=== PATIENT | male | born 1970 | race Caucasian/White ===

== ENCOUNTER 2016-10-08 13:30 | Inpatient (IN) | payer OTHER ==
[2016-10-08] VITALS (9 sets, daily range): BP systolic 130–155; BP diastolic 75–95; PULSE 79–101; RESP 12–20; TEMP 97.1–98.9; O2SAT 96–100
[2016-10-08] MEDS ORDERED: ceFAZolin 2 GM PREMIX 50 ML ONE (13:34)
[2016-10-08] MEDS ORDERED: IOHEXOL 350 MG/ML 10 ML VIAL (for RAD DIAG) IV ONE (13:45)
[2016-10-08 13:51] LABS: AUTOMATED NEUTROPHIL # 2.7 TH/MM3 (1.8-7.7); BASOPHIL # 0.1 TH/MM3 (0-0.2); BASOPHIL % 1.1 % (0.0-2.0); EOSINOPHIL # 0.1 TH/MM3 (0-0.4); EOSINOPHIL % 1.9 % (0.0-4.0); HEMATOCRIT 39.1 % (39.0-51.0); HEMO FLAGS DIFF FINAL; LYMPH % 40.1 % (9.0-44.0); LYMPHOCYTE # 2.2 TH/MM3 (1.0-4.8); MEAN CELL VOLUME 94.3 FL (80.0-100.0); MONO % 8.4 % (0.0-8.0); NEUT % 48.5 % (16.0-70.0); PLATELET COUNT 172 TH/MM3 (150-450); RED BLOOD COUNT 4.15 MIL/MM3 (4.50-5.90); RED CELL DISTRIBUTION WIDTH 13.1 % (11.6-17.2); WHITE BLOOD COUNT 5.6 TH/MM3 (4.0-11.0)
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
[2016-10-08 14:00] LABS: I-STAT POTASSIUM 4.2 MMOL/L (3.5-4.9)
[2016-10-08] MEDS: SODIUM CHLOR 0.9% 1000 ML INJ 1,000 ML IV SCH ×2 (14:02→23:19)
[2016-10-08 14:03] LABS: APTT (PATIENT) 24.9 SEC (24.3-30.1); INTERNATIONAL NORMALIZED RATIO 0.9 RATIO; PROTHROMBIN TIME - PATIENT 10.1 SEC (9.8-11.6)
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
[2016-10-08] MEDS ORDERED: Post-op Orders (for Pharmacy) MISC XX ONE (14:15)
[2016-10-08] MEDS ORDERED: ONDANSETRON HCL 4 MG/2 ML VIAL IV PRN (14:15)
[2016-10-08] MEDS ORDERED: NALOXONE HCL 0.4 MG/ML AMP IV PRN (14:15)
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
[2016-10-08] MEDS ORDERED: PROPARACAINE HCL 0.5% OPHT SOLN 15 ML BTL EACH EYE ONE (14:45)
[2016-10-08 15:06] LABS: BARBITURATES, URINE NEG (NEG); COCAINE, URINE NEG (NEG)
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
[2016-10-08] MEDS: ACETAMINOPHEN/HYDROcodone 325 MG/5 MG TAB PO PRN ×3 (15:15→23:19)
[2016-10-08] MEDS ORDERED: PROPARACAINE HCL 0.5% OPHT SOLN 15 ML BTL RIGHT EYE ONE (15:15)
[2016-10-08 15:17] LABS: AMPHETAMINE, URINE NEG (NEG)
[2016-10-08] MEDS: PANTOPRAZOLE SODIUM 40 MG VIAL IV SCH (16:13)
[2016-10-08] MEDS: MULTIVITAMIN INJ 10 ML, THIAMINE INJ 100 MG, FOLIC ACID INJ 1 MG in DEXT 5%-NACL 0.9% 5... IV SCH (18:00)
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
[2016-10-08] MEDS: MORPHINE SULFATE 8 MG/ML INJ IV PUSH PRN (21:40)
[2016-10-08] MEDS: BACITRACIN TOP OINT 15 GM TUBE TOPICAL SCH (21:41)
[2016-10-08] MEDS: DOCUSATE SODIUM 50 MG/SENNA 8.6 MG TAB PO SCH (21:41)
[2016-10-08] MEDS: SODIUM CHLORIDE 0.9% FLUSH 10 ML FLUSH IV FLUSH SCH (21:41)
[2016-10-09] VITALS: BP 136/85; PULSE 75; RESP 25; TEMP 98; O2SAT 96
[2016-10-09] MEDS: MORPHINE SULFATE 8 MG/ML INJ IV PUSH PRN ×6 (03:21→21:26)
[2016-10-09] MEDS: ACETAMINOPHEN/HYDROcodone 325 MG/5 MG TAB PO PRN ×4 (03:39→23:37)
[2016-10-09 04:00] VITALS: BP 138/86; PULSE 79; RESP 20; TEMP 97.5; O2SAT 100
[2016-10-09 08:00] VITALS: BP 153/83; PULSE 85; RESP 20; TEMP 98; O2SAT 96
[2016-10-09 08:52] LABS: AUTOMATED NEUTROPHIL # 3.5 TH/MM3 (1.8-7.7); BASOPHIL % 0.4 % (0.0-2.0); EOSINOPHIL # 0.1 TH/MM3 (0-0.4); EOSINOPHIL % 1.1 % (0.0-4.0); HEMATOCRIT 34.9 % (39.0-51.0); HEMO FLAGS DIFF FINAL; LYMPH % 28.2 % (9.0-44.0); LYMPHOCYTE # 1.6 TH/MM3 (1.0-4.8); MEAN CELL VOLUME 95.4 FL (80.0-100.0); MEAN CORPUSCULAR HEMOGLOBIN 32.3 PG (27.0-34.0); MEAN CORPUSCULAR HGB CONC 33.8 % (32.0-36.0); MONO % 10.1 % (0.0-8.0); NEUT % 60.2 % (16.0-70.0); PLATELET COUNT 144 TH/MM3 (150-450); RED BLOOD COUNT 3.66 MIL/MM3 (4.50-5.90); RED CELL DISTRIBUTION WIDTH 13.1 % (11.6-17.2); WHITE BLOOD COUNT 5.8 TH/MM3 (4.0-11.0)
[2016-10-09] MEDS: DOCUSATE SODIUM 50 MG/SENNA 8.6 MG TAB PO SCH ×2 (08:55→21:00)
[2016-10-09] MEDS: SODIUM CHLORIDE 0.9% FLUSH 10 ML FLUSH IV FLUSH SCH ×2 (09:00→21:00)
[2016-10-09] MEDS: BACITRACIN TOP OINT 15 GM TUBE TOPICAL SCH ×2 (09:00→21:00)
[2016-10-09 09:17] LABS: BICARBONATE 26.7 MEQ/L (21.0-32.0); POTASSIUM 3.8 MEQ/L (3.5-5.1)
[2016-10-09 12:00] VITALS: BP 120/87; PULSE 81; RESP 20; TEMP 98.4; O2SAT 98
[2016-10-09] MEDS ORDERED: PERC5TAB12 PO (12:20)
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
[2016-10-09 16:00] VITALS: BP 115/75; PULSE 80; RESP 20; TEMP 98.4; O2SAT 97
[2016-10-09] MEDS: SODIUM CHLOR 0.9% 1000 ML INJ 1,000 ML IV SCH (16:22)
[2016-10-09] MEDS: MULTIVITAMIN INJ 10 ML, THIAMINE INJ 100 MG, FOLIC ACID INJ 1 MG in DEXT 5%-NACL 0.9% 5... IV SCH (18:33)
[2016-10-09] MEDS: PANTOPRAZOLE SODIUM 40 MG VIAL IV SCH (18:33)
[2016-10-09 20:00] VITALS: BP 138/74; PULSE 73; RESP 20; TEMP 98.5; O2SAT 98
[2016-10-10] VITALS: BP 124/75; PULSE 79; RESP 18; TEMP 98; O2SAT 96
[2016-10-10] MEDS: MORPHINE SULFATE 8 MG/ML INJ IV PUSH PRN ×3 (02:22→10:03)
[2016-10-10] MEDS: SODIUM CHLORIDE 0.9% FLUSH 10 ML FLUSH IV FLUSH PRN ×2 (02:22→04:59)
[2016-10-10] MEDS: SODIUM CHLOR 0.9% 1000 ML INJ 1,000 ML IV SCH (02:23)
[2016-10-10 04:00] VITALS: BP 121/82; PULSE 68; RESP 18; TEMP 97.6; O2SAT 98
[2016-10-10] MEDS: ACETAMINOPHEN/HYDROcodone 325 MG/5 MG TAB PO PRN (07:19)
[2016-10-10] MEDS ORDERED: WALKER WHEELS/F1 MIS (07:59)
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
[2016-10-10] MEDS: DOCUSATE SODIUM 50 MG/SENNA 8.6 MG TAB PO SCH (08:45)
[2016-10-10] MEDS: SODIUM CHLORIDE 0.9% FLUSH 10 ML FLUSH IV FLUSH SCH (08:49)
[2016-10-10] MEDS: BACITRACIN TOP OINT 15 GM TUBE TOPICAL SCH (10:07)
== END 2016-10-10 10:54 | disposition home or self-care (01) | DRG 90 ==
LOC: NEPI 13:30 → EDBD 15:13 → NEDA 15:13 → N05B 18:20
PROVIDERS: ADMIT Surgery; ATTEND Surgery
DX: S06.0X9A Concussion with loss of consciousness of unspecified duration, initial encounter (principal); F19.129 Other psychoactive substance abuse with intoxication, unspecified; S00.91XA Abrasion of unspecified part of head, initial encounter; S60.512A Abrasion of left hand, initial encounter; S60.511A Abrasion of right hand, initial encounter; S60.812A Abrasion of left wrist, initial encounter; S60.811A Abrasion of right wrist, initial encounter; S80.211A Abrasion, right knee, initial encounter; Y90.6 Blood alcohol level of 120-199 mg/100 ml; S40.211A Abrasion of right shoulder, initial encounter; S92.411A Displaced fracture of proximal phalanx of right great toe, initial encounter for closed fracture; S05.11XA Contusion of eyeball and orbital tissues, right eye, initial encounter; S93.401A Sprain of unspecified ligament of right ankle, initial encounter; F10.129 Alcohol abuse with intoxication, unspecified; V28.4XXA Motorcycle driver injured in noncollision transport accident in traffic accident, initial encounter; Y92.410 Unspecified street and highway as the place of occurrence of the external cause
CPT/HCPCS: 70450; 70486; 71010; 71260; 72125; 73100; 73120; 73610; 73630; 74177; 80048; 80307; 82435; 82565; 82947; 84132; 84295; 84520; 85025; 85610; 85730; 86850; 86900; 86901; 94150; C9113; J0690; J2270; J3411; J7030; J7042; L2114; Q9967

== ENCOUNTER 2016-12-05 18:54 | Inpatient (IN) | payer SELFPAY ==
[~2016-12-05] VITALS: Ht 172.7 cm; Wt 95.3 kg
[~2016-12-05 18:54] MED LIST: PERC5TAB12 PO; WALKER WHEELS/F1 MIS
[2016-12-05 18:55] VITALS: BP 143/109; PULSE 69; RESP 15; TEMP 98.3; O2SAT 97
[2016-12-05] MEDS ORDERED: ADVI200T17 PO (19:25)
[2016-12-05] MEDS ORDERED: IBUP400T20 PO (19:25)
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
[2016-12-05] MEDS ORDERED: SODIUM CHLORIDE 0.9% FLUSH 10 ML FLUSH IVF PRN (19:30)
[2016-12-05] MEDS ORDERED: NALOXONE HCL 0.4 MG/ML AMP IV PUSH PRN (20:00)
[2016-12-05 20:06] LABS: AUTOMATED NEUTROPHIL # 5.9 TH/MM3 (1.8-7.7); BASOPHIL % 0.4 % (0.0-2.0); EOSINOPHIL # 0.1 TH/MM3 (0-0.4); EOSINOPHIL % 0.8 % (0.0-4.0); HEMATOCRIT 42.4 % (39.0-51.0); LYMPH % 27.1 % (9.0-44.0); LYMPHOCYTE # 2.5 TH/MM3 (1.0-4.8); MEAN CELL VOLUME 95.1 FL (80.0-100.0); MEAN CORPUSCULAR HEMOGLOBIN 32.8 PG (27.0-34.0); MEAN CORPUSCULAR HGB CONC 34.4 % (32.0-36.0); MONO % 8.3 % (0.0-8.0); NEUT % 63.4 % (16.0-70.0); PLATELET COUNT 163 TH/MM3 (150-450); RED BLOOD COUNT 4.45 MIL/MM3 (4.50-5.90); RED CELL DISTRIBUTION WIDTH 13.3 % (11.6-17.2); WHITE BLOOD COUNT 9.2 TH/MM3 (4.0-11.0)
--- NOTE | 2016-12-05 20:11 | RADRPT ---
EXAM DATE/TIME: 12/05/2016 19:58 [facility] COMPARISON: CHEST SINGLE AP, October 08, 2016, 13:23. INDICATIONS : Evaluate lung status. Patient being admitted for intracranial bleed. MEDICAL HISTORY : None. SURGICAL HISTORY : None. ENCOUNTER: Initial ACUITY: 1 day PAIN SCORE: 0/10 LOCATION: Bilateral chest FINDINGS: A single view of the chest demonstrates the lungs to be symmetrically aerated without evidence of mas s, infiltrate or effusion. The cardiomediastinal contours are unremarkable. Osseous structures are intact. CONCLUSION: No evidence of acute cardiopulmonary disease. Zac Gan MD on December 05, 2016 at 20:09 Board Certified Radiologist. This report was verified electronically.
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
[2016-12-05 20:19] LABS: ANION GAP 9 MEQ/L (5-15); AST (GOT) 27 U/L (15-37); BLOOD UREA NITROGEN 12 MG/DL (7-18); CHLORIDE 110 MEQ/L (98-107); GLOMERULAR FILTRATION RATE 84 ML/MIN (>89); POTASSIUM 4.1 MEQ/L (3.5-5.1); SODIUM (NA) 140 MEQ/L (136-145)
[2016-12-05 20:20] LABS: ALKALINE PHOSPHATASE 88 U/L (45-117); ALT (GPT) 30 U/L (12-78); HEMO FLAGS AUTO DIFF; TOTAL BILIRUBIN ADULT 0.6 MG/DL (0.2-1.0)
[2016-12-05 20:21] LABS: APTT (PATIENT) 26.4 SEC (24.3-30.1); INTERNATIONAL NORMALIZED RATIO 0.9 RATIO; PROTHROMBIN TIME - PATIENT 10.4 SEC (9.8-11.6)
[2016-12-05 21:00] VITALS: BP 177/107; PULSE 68; RESP 16; O2SAT 97
[2016-12-05] MEDS: DOCUSATE SODIUM 100 MG CAP PO SCH (21:00)
[2016-12-05 21:16] LABS: SCAN/DIFF AUTO DIFF CONFIRMED
[2016-12-05] MEDS: HYDROmorphone HCL PF 1 MG/ML VIAL IV PUSH PRN (21:23)
[2016-12-05 22:00] VITALS: BP 158/90; PULSE 68; RESP 16; O2SAT 98
[2016-12-05 23:00] VITALS: BP 147/85; PULSE 104; RESP 16; O2SAT 97
[2016-12-06] VITALS (10 sets, daily range): BP systolic 102–160; BP diastolic 52–99; PULSE 55–96; RESP 12–20; TEMP 97.8–98.7; O2SAT 92–96
[2016-12-06] MEDS: oxyCODONE/ACETAMINOPHEN 10 MG/325 MG TAB PO PRN (00:26)
[2016-12-06] MEDS: ONDANSETRON HCL 4 MG/2 ML VIAL IV PRN (00:26)
[2016-12-06] MEDS: HYDROmorphone HCL PF 1 MG/ML VIAL IV PUSH PRN ×3 (01:23→08:06)
--- NOTE | 2016-12-06 04:42 | RADRPT ---
EXAM DATE/TIME: 12/06/2016 04:09 This report includes an Addendum and supersedes previous reports for this exam. [facility] COMPARISON: CT BRAIN W/O CONTRAST, October 08, 2016, 13:45. INDICATIONS : Follow up subdural hematoma. RADIATION DOSE: 37.00 CTDIvol (mGy) MEDICAL HISTORY : None SURGICAL HISTORY : None. ENCOUNTER: Subsequent ACUITY: 2 days PAIN SCALE: 0/10 LOCATION: cranial TECHNIQUE: Multiple contiguous axial images were obtained of the head. Using automated exposure control and adj ustment of the mA and/or kV according to patient size, radiation dose was kept as low as reasonably a chievable to obtain optimal diagnostic quality images. DICOM format image data is available electro nically for review and comparison. FINDINGS: CEREBRUM: Large right frontal parietal subdural hematoma measures almost 3 cm in depth. This does result in chivo roximate 1 cm right to left subfalcine shift. POSTERIOR FOSSA: The cerebellum and brainstem are intact. The 4th ventricle is midline. The cerebellopontine angle i s unremarkable. EXTRACRANIAL: The visualized portion of the orbits is intact. SKULL: The calvaria is intact. No evidence of skull fracture. CONCLUSION: 1. Large, right-sided 3 cm in depth subdural hematoma in the frontoparietal region. 2. Concomitant 1 cm right to left subfalcine shift Chapo Melo MD on December 06, 2016 at 4:36 Board Certified Radiologist. This report was verified electronically. ADDENDUM: Please note, there is also a small, 1 cm left sided subdural that is isodense to the adjacent brain p arian Melo MD on December 07, 2016 at 6:09 Board Certified Radiologist. This report was verified electronically.
[2016-12-06] MEDS: PANTOPRAZOLE SOD 40 MG DELAYED RELEASE TAB PO SCH (09:01)
[2016-12-06] MEDS: DOCUSATE SODIUM 100 MG CAP PO SCH ×2 (09:01→21:15)
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
[2016-12-06] MEDS ORDERED: GELFOAM SIZE 100 ONE (11:25)
[2016-12-06] MEDS ORDERED: GENTAMICIN SULFATE 80 MG/2 ML VIAL ONE (11:25)
[2016-12-06] MEDS ORDERED: THROMBIN (TOPICAL) 5,000 UNIT VIAL ONE (11:25)
[2016-12-06] MEDS ORDERED: FAMOTIDINE 20 MG/2 ML VIAL ONE (11:58)
[2016-12-06] MEDS ORDERED: PHENYLEPHRINE HCL 10 MG/ML VIAL IV ONE (12:00)
[2016-12-06] MEDS ORDERED: PROPOFOL 200 MG/20 ML AMP IV ONE (12:00)
[2016-12-06] MEDS ORDERED: VECURONIUM BROMIDE 20 MG VIAL IV ONE (12:00)
[2016-12-06] MEDS ORDERED: SODIUM CHLORID 0.9% 500 ML INJ 500 ML IV ONE (12:00)
[2016-12-06] MEDS ORDERED: MORPHINE SULFATE 4 MG/ML INJ IV ONE (12:00)
[2016-12-06] MEDS ORDERED: LACTATED RINGER'S 1000 ML INJ 2,000 ML IV ONE (12:00)
[2016-12-06] MEDS ORDERED: PHENYLEPH/NS 1000 MCG/10 ML SYR IV ONE (12:00)
[2016-12-06] MEDS ORDERED: ONDANSETRON HCL 4 MG/2 ML VIAL IV PUSH ONE (12:00)
[2016-12-06] MEDS ORDERED: ePHEDrine/NS 25 MG/5 ML SYR IV ONE (12:00)
[2016-12-06] MEDS ORDERED: VANCOMYCIN HCL 1000 MG VIAL ONE (13:15)
[2016-12-06] MEDS ORDERED: ceFAZolin INJ 1,000 MG VIAL IV ONE (13:30)
[2016-12-06] MEDS ORDERED: LIDOCAINE 1%/EPINEPHrine 1:100,000 SOLN 50 ML VIAL INFIL ONE (14:18)
[2016-12-06] MEDS ORDERED: SUGAMMADEX SODIUM 200 MG/2 ML VIAL IV PUSH ONE ×2 (14:20)
[2016-12-06] MEDS ORDERED: DO NOT ADM ANY ANTICOAGULANT DRUGS PRN (15:03)
[2016-12-06] MEDS ORDERED: *morphine SULFATE 8 MG/ML PERIprocedure ONLY ONE ×2 (15:11→15:56)
[2016-12-06] MEDS: D5-NS + KCL 20 MEQ INJ 1,000 ML IV SCH (16:12)
[2016-12-06] MEDS ORDERED: niCARdipine INJ 25 MG in SODIUM CHLOR 0.9% 250 ML INJ 250 ML IV PRN (16:15)
[2016-12-06] MEDS ORDERED: SODIUM CHLORIDE 0.9% FLUSH 5 ML FLUSH IVF PRN (16:15)
--- NOTE | 2016-12-06 16:20 | PD.OP ---
Operative Report Date of Surgery: Dec 06, 2016 Preoperative Diagnosis: (1) Subdural hematoma Bilateral Subacute to chronic subdural hematoma Postoperative Diagnosis: (1) Subdural hematoma Bilateral Subacute to chronic subdural hematoma Procedure: Bilateral parietal bur hole for evacuation of subdural hematoma Anesthesia: Gen. Surgeon: Francois Acevedo Senior Oracle Database Developer(s): Lynsey Le Operation and Findings: Findings: Bilateral right greater than left subacute subdural hematoma. Very thin subdural membrane. Procedure in detail The patient was brought into the operating room and general endotracheal anesthesia introduced without difficulty. The patient was placed in supine position on the 3080 table with the head and neck in neutral position on the horseshoe headrest. All extremities were appropriately padded. The head was shaved with clippers and sterilely prepped and draped. Appropriate timeout procedure was performed with all personnel present and in agreement. 1% Xylocaine with epinephrine was used for local infiltration over the incision site which was made near the convexity at the bilateral posterior parietal region and carried sharply down to the cranium. The self-retaining retractor was placed. At each incision site, the bun panner was used to place a single bur hole and the dura was incised in a cruciate fashion and the edges coagulated with the bipolar forceps. No significant underlying subdural membrane was encountered. A significant amount of subacute appearing subdural hematoma was evacuated from the subdural space on each side with gentle suction and irrigation until clear. The 7 mm flat fluted drain was left in place in the subdural space and guided into place with the [place] 3 dissector. The drain was brought out through an incision in the posterior frontal parietal region on each side and secured to the skin with nylon suture and attached to sterile suction. The incision was closed with 3-0 Vicryl for the galea and 3-0 nylon running for the scalp closure on each side. A dressing of sterile Primapore was placed. The patient was taken to recovery room in stable condition All counts were correct at the end of the case Estimated blood loss was less than 200 cc. No specimen was sent to pathology Francois Acevedo MD Dec 06, 2016 16:20
--- NOTE | 2016-12-06 18:08 | EKG ---
Date Performed: 12/05/2016 Time Performed: 19:32:24 PTAGE: 46 years EKG: Sinus rhythm NORMAL ECG NO PREVIOUS TRACING DOCTOR: Vasu Mcpherson Interpretating Date/Time 12/06/2016 18:06:45
[2016-12-06] MEDS: ACETAMINOPHEN/HYDROcodone 325 MG/5 MG TAB PO PRN (18:55)
[2016-12-06] MEDS: SODIUM CHLORIDE 0.9% FLUSH 5 ML FLUSH IVF SCH (21:00)
[2016-12-07] VITALS (11 sets, daily range): BP systolic 106–135; BP diastolic 56–73; PULSE 55–92; RESP 16–22; TEMP 98–98.8; O2SAT 93–99
[2016-12-07] MEDS: D5-NS + KCL 20 MEQ INJ 1,000 ML IV SCH ×3 (02:12→22:21)
[2016-12-07] MEDS: MORPHINE SULFATE 4 MG/ML INJ IV PUSH PRN ×2 (02:40→05:48)
--- NOTE | 2016-12-07 06:09 | RADRPT ---
EXAM DATE/TIME: 12/07/2016 05:06 [facility] COMPARISON: CT BRAIN W/O CONTRAST, December 06, 2016, 4:09. INDICATIONS : Post operative drain placement. RADIATION DOSE: 36.12 CTDIvol (mGy) MEDICAL HISTORY : Non-responsive. SURGICAL HISTORY : Non-responsive. ENCOUNTER: Subsequent ACUITY: 2 days PAIN SCALE: Non-responsive LOCATION: cranial TECHNIQUE: Multiple contiguous axial images were obtained of the head. Using automated exposure control and adj ustment of the mA and/or kV according to patient size, radiation dose was kept as low as reasonably a chievable to obtain optimal diagnostic quality images. DICOM format image data is available electro nically for review and comparison. FINDINGS: CEREBRUM: Interval placement of bilateral subdural drains. The large 3 cm acute or subacute right-sided subdura l and the more subacute appearing 1 cm subdural on the left both show almost complete resolution. Pre vious 1 cm [id number]-ca-zzec subfalcine shift is also markedly improved now measuring 4.6 mm. No evidenc e of midline shift, mass lesion, hemorrhage or acute infarction. No extra-axial fluid collections ar e seen. POSTERIOR FOSSA: The cerebellum and brainstem are intact. The 4th ventricle is midline. The cerebellopontine angle i s unremarkable. EXTRACRANIAL: The visualized portion of the orbits is intact. SKULL: The calvaria is intact. No evidence of skull fracture. CONCLUSION: Interval placement of bilateral subdural drains with evacuation of the subdural hematomas as abo ve. Improving [id number] subfalcine shift. Chapo Melo MD on December 07, 2016 at 6:03 Board Certified Radiologist. This report was verified electronically.
[2016-12-07 08:00] LABS: BASOPHIL % 0.4 % (0.0-2.0); EOSINOPHIL # 0.1 TH/MM3 (0-0.4); EOSINOPHIL % 0.8 % (0.0-4.0); HEMATOCRIT 33.8 % (39.0-51.0); HEMO FLAGS DIFF FINAL; LYMPH % 19.8 % (9.0-44.0); LYMPHOCYTE # 1.7 TH/MM3 (1.0-4.8); MEAN CELL VOLUME 93.8 FL (80.0-100.0); MEAN CORPUSCULAR HEMOGLOBIN 32.9 PG (27.0-34.0); MEAN CORPUSCULAR HGB CONC 35.1 % (32.0-36.0); MONO % 8.1 % (0.0-8.0); NEUT % 70.9 % (16.0-70.0); PLATELET COUNT 146 TH/MM3 (150-450); RED BLOOD COUNT 3.61 MIL/MM3 (4.50-5.90); RED CELL DISTRIBUTION WIDTH 13.1 % (11.6-17.2); WHITE BLOOD COUNT 8.4 TH/MM3 (4.0-11.0)
[2016-12-07 08:02] LABS: APTT (PATIENT) 25.6 SEC (24.3-30.1); PROTHROMBIN TIME - PATIENT 10.8 SEC (9.8-11.6)
[2016-12-07 08:15] LABS: BICARBONATE 25.3 MEQ/L (21.0-32.0); POTASSIUM 3.6 MEQ/L (3.5-5.1)
[2016-12-07] MEDS: PANTOPRAZOLE SOD 40 MG DELAYED RELEASE TAB PO SCH (08:34)
[2016-12-07] MEDS: SODIUM CHLORIDE 0.9% FLUSH 5 ML FLUSH IVF SCH ×2 (08:34→20:35)
[2016-12-07] MEDS: DOCUSATE SODIUM 100 MG CAP PO SCH ×2 (08:35→20:35)
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
[2016-12-07] MEDS: oxyCODONE/ACETAMINOPHEN 10 MG/325 MG TAB PO PRN ×2 (11:36→20:35)
[2016-12-07] MEDS: ACETAMINOPHEN/HYDROcodone 325 MG/5 MG TAB PO PRN (15:44)
[2016-12-07] MEDS: ZOLPIDEM TARTRATE 10 MG TAB PO PRN (22:24)
[2016-12-08] VITALS (12 sets, daily range): BP systolic 106–149; BP diastolic 61–87; PULSE 54–88; RESP 10–22; TEMP 97.7–99.7; O2SAT 94–99
[2016-12-08] MEDS: MORPHINE SULFATE 4 MG/ML INJ IV PUSH PRN ×2 (00:10→06:59)
[2016-12-08] MEDS: oxyCODONE/ACETAMINOPHEN 10 MG/325 MG TAB PO PRN ×2 (02:52→14:40)
[2016-12-08] MEDS: DOCUSATE SODIUM 100 MG CAP PO SCH ×2 (08:04→20:08)
[2016-12-08] MEDS: PANTOPRAZOLE SOD 40 MG DELAYED RELEASE TAB PO SCH (08:04)
[2016-12-08] MEDS: D5-NS + KCL 20 MEQ INJ 1,000 ML IV SCH ×2 (08:07→19:03)
[2016-12-08] MEDS: SODIUM CHLORIDE 0.9% FLUSH 5 ML FLUSH IVF SCH ×2 (08:07→20:09)
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
[2016-12-08] MEDS: ZOLPIDEM TARTRATE 10 MG TAB PO PRN (20:09)
[2016-12-08] MEDS: ACETAMINOPHEN/HYDROcodone 325 MG/5 MG TAB PO PRN (20:09)
[2016-12-09] VITALS (9 sets, daily range): BP systolic 135–159; BP diastolic 81–99; PULSE 47–78; RESP 12–24; TEMP 97.7–98.8; O2SAT 94–100
[2016-12-09] MEDS: D5-NS + KCL 20 MEQ INJ 1,000 ML IV SCH (02:29)
[2016-12-09] MEDS: HYDROmorphone HCL PF 1 MG/ML VIAL IV PUSH PRN ×4 (02:56→18:40)
[2016-12-09] MEDS: ONDANSETRON HCL 4 MG/2 ML VIAL IV PRN (02:56)
[2016-12-09] MEDS: ACETAMINOPHEN/HYDROcodone 325 MG/5 MG TAB PO PRN ×2 (05:44→08:43)
[2016-12-09] MEDS ORDERED: LIDOCAINE HCL 2% 20 ML VIAL NERV BLOCK ONE (06:00)
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
[2016-12-09] MEDS: PANTOPRAZOLE SOD 40 MG DELAYED RELEASE TAB PO SCH (07:53)
[2016-12-09] MEDS: DOCUSATE SODIUM 100 MG CAP PO SCH ×2 (07:53→20:26)
[2016-12-09] MEDS ORDERED: LIDOCAINE 2%/EPINEPHrine 1:100,000 20ML MDV NERV BLOCK ONE (08:15)
[2016-12-09] MEDS: SODIUM CHLORIDE 0.9% FLUSH 5 ML FLUSH IVF SCH ×2 (08:44→20:27)
[2016-12-09] MEDS: MORPHINE SULFATE 4 MG/ML INJ IV PUSH PRN ×2 (09:20→16:40)
[2016-12-09] MEDS: oxyCODONE/ACETAMINOPHEN 10 MG/325 MG TAB PO PRN ×2 (14:20→20:26)
[2016-12-09] MEDS: ZOLPIDEM TARTRATE 10 MG TAB PO PRN (20:26)
[2016-12-10] VITALS: BP 131/69; PULSE 64; RESP 16; TEMP 97.3; O2SAT 97
[2016-12-10 04:00] VITALS: BP_SYST 126; BP_SYST 172; BP_DIAS 73; BP_DIAS 78; PULSE 62; PULSE 74; RESP 18; TEMP 98.3; TEMP 98.6; O2SAT 94; O2SAT 97
[2016-12-10] MEDS: ACETAMINOPHEN/HYDROcodone 325 MG/5 MG TAB PO PRN ×2 (04:34→12:08)
[2016-12-10] MEDS: MORPHINE SULFATE 4 MG/ML INJ IV PUSH PRN (07:29)
[2016-12-10 08:00] VITALS: BP 146/83; PULSE 62; RESP 18; TEMP 97.9; O2SAT 96
[2016-12-10] MEDS: DOCUSATE SODIUM 100 MG CAP PO SCH (08:34)
[2016-12-10] MEDS: PANTOPRAZOLE SOD 40 MG DELAYED RELEASE TAB PO SCH (08:34)
[2016-12-10] MEDS: SODIUM CHLORIDE 0.9% FLUSH 5 ML FLUSH IVF SCH (08:35)
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
[2016-12-10 12:00] VITALS: BP 145/87; PULSE 69; RESP 18; TEMP 98.1; O2SAT 97
[2016-12-10] MEDS ORDERED: DOCU1CAP39 PO (15:35)
[2016-12-10] MEDS ORDERED: PERC5TAB12 PO (15:35)
--- NOTE | 2016-12-10 15:41 | HHI.DCPOC ---
Discharge Care Plan Diagnosis: (1) Subdural hematoma Your Health Problems Are: Incision/Drains Goals to Promote Your Health * To prevent worsening of your condition and complications * To maintain your health at the optimal level Avoid any bending over, lifting more than 10 pounds, pushing, pulling, contact or strenuous activity. You may shower from the neck down but avoid getting the surgical incisions wet. Call [phone] to schedule a follow up appointment on or after for a wound check and possible staple removal. Avoid any medications containing aspirin or any NSAIDs (ibuprofen, naproxen, Advil, Naprosyn, etc.). Avoid any tobacco product use at least for the next 3 months. Directions to Meet Your Goals Take your medications as prescribed Follow your dietary instruction Follow activity as directed Avoid any bending over, lifting more than 10 pounds, pushing, pulling, contact or strenuous activity. You may shower from the neck down but avoid getting the surgical incisions wet. Call [phone] to schedule a follow up appointment on or after for a wound check and possible staple removal. Avoid any medications containing aspirin or any NSAIDs (ibuprofen, naproxen, Advil, Naprosyn, etc.). Avoid any tobacco product use at least for the next 3 months. Keep your appointments as scheduled Take your immunizations and boosters as scheduled If your symptoms worsen call your PCP, if no PCP go to Urgent Care Center or Emergency Room Smoking is Dangerous to Your Health. Avoid second hand smoke Call the 24-hour hour crisis hotline for domestic abuse at Trevor Lara Dec 10, 2016 15:41 Francois Acevedo MD Dec 31, 2016 06:38
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
[2016-12-18] MEDS ORDERED: PERC5TAB12 PO (10:38)
== END 2016-12-10 16:47 | disposition home or self-care (01) | DRG 27 ==
LOC: NEPE 18:54 → NEDA 19:25 → N03A 12-06 00:19 → N05A 12-09 21:13
PROVIDERS: ADMIT Neurological Surgery; ATTEND Neurological Surgery
PROC: 00C40ZZ Extirpation of Matter from Intracranial Subdural Space, Open Approach (ICD-10-PCS; principal; 2016-12-06 12:26)
DX: S06.5X1A Traumatic subdural hemorrhage with loss of consciousness of 30 minutes or less, initial encounter (principal); F32.9 Major depressive disorder, single episode, unspecified; K21.9 Gastro-esophageal reflux disease without esophagitis; V29.9XXA Motorcycle rider (driver) (passenger) injured in unspecified traffic accident, initial encounter; Z87.891 Personal history of nicotine dependence; Z87.11 Personal history of peptic ulcer disease
CPT/HCPCS: 70450; 71010; 80048; 80053; 83735; 85025; 85610; 85730; 87641; 93005; 94150; J0690; J1170; J1580; J2270; J2370; J2405; J3010; J3370; J3480; J7040; J7050; J7120

== ENCOUNTER 2017-02-13 15:57 | Emergency (ER) | payer SELFPAY ==
[~2017-02-13] VITALS: Ht 177.8 cm; Wt 86.0 kg
[~2017-02-13 15:57] MED LIST changes: +DOCU1CAP39 PO; -WALKER WHEELS/F1 MIS
[2017-02-13 15:59] VITALS: BP 181/109; PULSE 88; RESP 18; TEMP 99.2; O2SAT 97
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
[2017-02-13 17:44] VITALS: BP 177/107; PULSE 87; RESP 19; O2SAT 97
[2017-02-13] MEDS ORDERED: bp med (17:47)
[2017-02-13 18:43] LABS: AUTOMATED NEUTROPHIL # 4.8 TH/MM3 (1.8-7.7); BASOPHIL % 0.4 % (0.0-2.0); EOSINOPHIL % 0.6 % (0.0-4.0); HEMATOCRIT 42.5 % (39.0-51.0); LYMPHOCYTE # 2.2 TH/MM3 (1.0-4.8); MEAN CELL VOLUME 92.3 FL (80.0-100.0); MONO % 7.7 % (0.0-8.0); NEUT % 62.3 % (16.0-70.0); PLATELET COUNT 184 TH/MM3 (150-450); RED CELL DISTRIBUTION WIDTH 13.2 % (11.6-17.2); WHITE BLOOD COUNT 7.7 TH/MM3 (4.0-11.0)
[2017-02-13 18:44] LABS: HEMO FLAGS AUTO DIFF; MEAN CORPUSCULAR HGB CONC 36.8 % (32.0-36.0)
[2017-02-13] MEDS ORDERED: cloNIDine HCL 0.1 MG TAB PO ONE (18:45)
[2017-02-13 18:47] VITALS: BP 170/113; PULSE 81; RESP 17; O2SAT 98
[2017-02-13 19:03] LABS: ANION GAP 9 MEQ/L (5-15); AST (GOT) 35 U/L (15-37); BICARBONATE 22.3 MEQ/L (21.0-32.0); BLOOD UREA NITROGEN 15 MG/DL (7-18); CHLORIDE 102 MEQ/L (98-107); GLOMERULAR FILTRATION RATE 63 ML/MIN (>89); POTASSIUM 3.6 MEQ/L (3.5-5.1); SODIUM (NA) 133 MEQ/L (136-145)
[2017-02-13 19:04] LABS: ALT (GPT) 46 U/L (12-78)
[2017-02-13 19:06] VITALS: BP 167/107; PULSE 81; RESP 20; O2SAT 98
[2017-02-13 19:06] LABS: ALKALINE PHOSPHATASE 87 U/L (45-117); TOTAL BILIRUBIN ADULT 0.5 MG/DL (0.2-1.0)
[2017-02-13 19:10] LABS: ALCOHOL LESS THAN 3 MG/DL (0-5)
[2017-02-13 19:41] VITALS: BP 158/90; PULSE 73; RESP 20; O2SAT 98
[2017-02-13 19:42] LABS: SCAN/DIFF AUTO DIFF CONFIRMED
[2017-02-13 19:43] LABS: PLATELET ESTIMATE SMEAR NORMAL (NORMAL); PLATELET MORPHOLOGY NORMAL (NORMAL)
--- NOTE | 2017-02-13 20:04 | PD ---
Physical Exam Narrative Patient was signed out to me pending lab results by previous provider. Please see their documentation for full H&P. Data Data Last Documented VS Vital Signs Date Time Temp Pulse Resp B/P (MAP) Pulse Ox O2 Delivery O2 Flow Rate FiO2 02/13/17 19:41 73 20 158/90 (112) 98 Room Air 02/13/17 15:59 99.2 Orders Orders Complete Blood Count With Diff (02/13/17 17:36) Comprehensive Metabolic Panel (02/13/17 17:36) Urinalysis - C+S If Indicated (02/13/17 17:36) Psych Screen (02/13/17 17:36) Drug Screen, Random Urine (02/13/17 17:36) Alcohol (Ethanol) (02/13/17 17:36) Clonidine (Catapres) (02/13/17 18:45) Labs Laboratory Tests Test 02/13/17 18:25 02/13/17 19:35 White Blood Count 7.7 TH/MM3 Red Blood Count 4.60 MIL/MM3 Hemoglobin 15.6 GM/DL Hematocrit 42.5 % Mean Corpuscular Volume 92.3 FL Mean Corpuscular Hemoglobin 34.0 PG Mean Corpuscular Hemoglobin Concent 36.8 % Red Cell Distribution Width 13.2 % Platelet Count 184 TH/MM3 Mean Platelet Volume 6.9 FL Neutrophils (%) (Auto) 62.3 % Lymphocytes (%) (Auto) 29.0 % Monocytes (%) (Auto) 7.7 % Eosinophils (%) (Auto) 0.6 % Basophils (%) (Auto) 0.4 % Neutrophils # (Auto) 4.8 TH/MM3 Lymphocytes # (Auto) 2.2 TH/MM3 Monocytes # (Auto) 0.6 TH/MM3 Eosinophils # (Auto) 0.0 TH/MM3 Basophils # (Auto) 0.0 TH/MM3 CBC Comment AUTO DIFF Differential Comment AUTO DIFF CONFIRMED Platelet Estimate NORMAL Platelet Morphology Comment NORMAL Blood Urea Nitrogen 15 MG/DL Creatinine 1.23 MG/DL Random Glucose 105 MG/DL Total Protein 8.2 GM/DL Albumin 4.5 GM/DL Calcium Level 9.0 MG/DL Alkaline Phosphatase 87 U/L Aspartate Amino Transf (AST/SGOT) 35 U/L Alanine Aminotransferase (ALT/SGPT) 46 U/L Total Bilirubin 0.5 MG/DL Sodium Level 133 MEQ/L Potassium Level 3.6 MEQ/L Chloride Level 102 MEQ/L Carbon Dioxide Level 22.3 MEQ/L Anion Gap 9 MEQ/L Estimat Glomerular Filtration Rate 63 ML/MIN Ethyl Alcohol Level LESS THAN 3 MG/DL MDM Supervised Visit with [facility]ESSA: No Narrative Course Patient was seen and examined. Patient denies any suicidal or homicidal ideations. Labs were obtained and reviewed with the exception urine drug screen that has not been collected Gen. Patient medically cleared for further treatment and evaluation by psych. Final disposition per psych. Patient was evaluated by psych department and given outpatient resources. Patient denies any homicidal or suicidal ideations. Denies any medical concerns at this time. Patient is stable for discharge home and outpatient follow-up. Diagnosis Primary Impression: Medical clearance for psychiatric admission Referrals: [facility] Patient Instructions: General Instructions Additional Instruction: Follow-up with [facility]. Return to the emergency department if symptoms get worse. Disposition: 01 DISCHARGE HOME Condition: Stable Landry Montenegro Feb 13, 2017 20:04
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
[2017-02-13 21:07] LABS: BLOOD, URINE NEG (NEG); GLUCOSE,URINE NEG (NEG); KETONE, URINE NEG (NEG); NITRITE,URINE NEG (NEG); URINE COLOR LIGHT-YELLOW (YELLW/STRAW)
[2017-02-13 21:09] LABS: COMMENT (UR) CULT NOT INDICATED; CULTURE IF INDICATED CULT NOT INDICATED
[2017-02-13 23:58] VITALS: BP 130/84
== END 2017-02-13 23:59 | disposition home or self-care (01) ==
LOC: NEPD 15:57
DX: F43.23 Adjustment disorder with mixed anxiety and depressed mood (principal); F12.90 Cannabis use, unspecified, uncomplicated; Z79.899 Other long term (current) drug therapy
CPT/HCPCS: 80053; 80307; 81001; 85025; 99284